=== PATIENT | female | born 1945 | race Caucasian/White ===

== ENCOUNTER → 2016-08-08 | Outpatient (CLI) | payer BC ==
[~2016-08-08] MED LIST: IBUP-1050 PO; LRT5 PO
--- NOTE | 2016-08-08 13:33 | MAMMOGRAPHY REPORT ---
BILATERAL DIGITAL DIAGNOSTIC MAMMOGRAM TOMOSYNTHESIS WITH CAD: 08/08/2016 CLINICAL HISTORY: History of benign ultrasound-guided core needle biopsy of the left breast January 2016, here for short interval follow-up of a left breast asymmetry. TECHNIQUE: Breast tomosynthesis in addition to standard 2D mammography was performed. Current study was also evaluated with a Computer Aided Detection (CAD) system. Bilateral CC and MLO 2-D and cece synthesis images were obtained. COMPARISON: Comparison is made to exams dated: 02/08/2016 ultrasound biopsy, 02/08/2016 mammogram, 02/04/2016 ultrasound, 02/04/2016 mammogram, 06/06/2015 ultrasound, and 06/06/2015 mammogram - [facility]. BREAST COMPOSITION: There are scattered areas of fibroglandular density in both breasts. FINDINGS: A biopsy marker clip is again noted in the left upper outer quadrant from prior benign ult rasound-guided biopsy. The previously described asymmetry in the left superior breast middle depth on the MLO view only is stable dating back to the April 2015 exam, and has the appearance of shanae l fibroglandular tissue on the tomosynthesis images. The remainder of both breasts are stable kenny red to prior exams, without suspicious masses, calcifications, or areas of architectural distortion noted. IMPRESSION: ACR BI-RADS CATEGORY 2: BENIGN The left superior breast asymmetry is stable dating back to the April 2015 exam, and is benign and compatible with normal fibroglandular tissue. There is no mammographic evidence of malignancy. A 1 year screening mammogram is recommended. The patient has been verbally notified of the results. Approximately 10% of breast cancers are not detected with mammography. A negative mammographic repor t should not delay biopsy if a clinically suggestive mass is present. Deb Hardy M.D. /:08/08/2016 10:23:16 Wood Stainer: Darlyn Covarrubias, [facility] letter sent: Normal 1/2 BI-RADS Code: ACR BI-RADS Category 2: Benign
== END | disposition home or self-care (01) ==
LOC: C.MAMM 09:41
PROVIDERS: ATTEND Family Medicine
DX: R92.8 Other abnormal and inconclusive findings on diagnostic imaging of breast (principal); N64.89 Other specified disorders of breast

== ENCOUNTER 2017-04-15 22:29 | Emergency (ER) | payer BC ==
[~2017-04-15] VITALS: Ht 154.9 cm; Wt 63.7 kg
[2017-04-15 22:31] VITALS: TEMP 36.4; Ht 154.9 cm; Wt 63.7 kg
[2017-04-15] MEDS ORDERED: ONDANSETRON 4MG OD TAB PO ONE (22:45)
--- NOTE | 2017-04-15 23:07 | DIAGNOSTIC IMAGING REPORT ---
RIGHT SHOULDER 2 VIEWS CLINICAL HISTORY: Right shoulder pain. FINDINGS: 2 views of the right shoulder are obtained. No prior studies are available for comparison at the time of dictation. The skeletal structures are osteopenic. No fracture is identified. There is anterior shoulder dislocation. Mild degenerative change is noted at the acromioclavicular joint. Overlying soft tissue edema is observed. The visualized right lung parenchyma appears clear. IMPRESSION: Findings are consistent with anterior right shoulder dislocation. No fracture is clearly seen. Electronically signed by: Jacky Salinas M.D. 04/15/2017 11:06 PM Dictated Date/Time: 04/15/2017 11:05 PM
[2017-04-15] MEDS ORDERED: FENTANYL CITRATE INJ 50 MCG/1 ML 2 ML VIAL IV ONE (23:30)
[2017-04-15] MEDS ORDERED: FENTANYL CITRATE INJ 50 MCG/1 ML 2 ML VIAL IV STA (23:56)
[2017-04-16] MEDS ORDERED: HYDROmorphone INJ 0.5 MG/0.5 ML SYR IV STA (00:18)
--- NOTE | 2017-04-16 00:26 | EMERGENCY ROOM VISIT NOTE ---
ED Visit Note First contact with patient: 22:39 The patient was seen and examined with Tereza Voss PA-C. I agree with the history, physical and findings. Please see the note for disposition and details. The patient has a dislocated shoulder on the right side. She was given fentanyl and Dilaudid for pain control. Procedural Sedation Indication shoulder dislocation. Total time: 15 minutes. Written consent was obtained after the risks and benefits were explained to the patient and family, including, but not limited to aspiration, allergic reaction , breathing difficulties, cardiac complications, vomiting, pain, event recall, bleeding, and/or infection. Pre-sedation examination and paperwork completed. The patient was on 100% oxygen via NRB prior to the procedure. Continous end tidal CO2 monitoring, pulse oximetry, and cardiac monitoring were utilized. Suction, airway equipment, medications, respiratory equipment, and appropriate personnel were prepared prior to the initiation of the procedure. A time out was taken. Sedation was achieved utilizing a total of 40 mg propofol in 2 doses of 30 mg and 10 mg. After I observed the patient had reached the appropriate level of sedation the main procedure was performed without complication. Sedation was discontinued and the monitoring continued. The patient recovered quickly from the effects of the medication without complication or adverse event.
--- NOTE | 2017-04-16 00:30 | EMERGENCY ROOM VISIT NOTE ---
History First contact with patient: 22:39 Chief Complaint: SHOULDER PAIN Stated Complaint: DISLOCATED R SHOULDER OR TORN ROTATOR CUFF History of Present Illness The patient is a 71 year old female who presents to the Emergency Room with complaints of right shoulder pain and difficulty moving the arm. The patient reports that she has been having issues with her shoulder for "a while." She states that she has increased shoulder pain at night. She states that this evening, she made dinner and was going about her normal activities and when she was washing her dishes, she suddenly had increased pain and became unable to lift her arm at the shoulder. She rates her overall discomfort a 10/10. She denies any history of shoulder surgery or previous dislocations. She denies any numbness. She denies any recent trauma to the shoulder. Review of Systems A complete 10 point review of systems was reviewed with the patient with pertinent positives and negatives as per history of present illness. All else were negative. Social History Smoking Status: Never Smoker Current/Historical Medications Scheduled Ibuprofen (Advil), 400-600 MG PO Q6HR PRN Physical Exam Vital Signs Date Time Temp Pulse Resp B/P (MAP) Pulse Ox O2 Delivery O2 Flow Rate FiO2 04/16/17 01:55 79 17 157/79 94 Room Air 04/16/17 01:52 79 20 153/79 100 Non-Rebreather 15.0 04/16/17 01:43 79 10 164/116 100 Non-Rebreather 15.0 04/16/17 01:37 61 16 200/80 100 Nasal Cannula 2.0 04/16/17 01:30 59 21 200/80 99 Nasal Cannula 2.0 04/16/17 01:22 63 25 203/86 98 Room Air 04/16/17 00:08 76 30 193/86 98 Room Air 04/15/17 23:36 79 04/15/17 22:31 36.4 64 18 202/74 99 Room Air Physical Exam VITALS: Vitals are noted on the nurse's note and reviewed by myself. Vital signs stable. GENERAL: This is a 71-year-old female, uncomfortable appearing, well-developed well-nourished. SKIN: Capillary reflex less than 2 seconds. HEENT: Normocephalic. PERRLA. Mucous membranes moist, airway patent. HEART: Regular rate and rhythm without murmurs gallops or rubs. LUNGS: Clear to auscultation bilaterally without wheezes, rales or rhonchi. MUSCULOSKELETAL: There is obvious deformity of the right shoulder with tenderness to palpation. Significantly decreased range of motion of the shoulder. Radial pulses 2+. NEURO: Patient was alert and oriented to person place and time. Normal sensation of the right upper extremity. Medical Decision & Procedures ER Provider Diagnostic Interpretation: RIGHT SHOULDER 2 VIEWS FINDINGS: 2 views of the right shoulder are obtained. No prior studies are available for comparison at the time of dictation. The skeletal structures are osteopenic. No fracture is identified. There is anterior shoulder dislocation. Mild degenerative change is noted at the acromioclavicular joint. Overlying soft tissue edema is observed. The visualized right lung parenchyma appears clear. IMPRESSION: Findings are consistent with anterior right shoulder dislocation. No fracture is clearly seen. RIGHT SHOULDER 2 VIEWS - POST REDUCTION Interval reduction of the right shoulder dislocation. Medications Administered Medications (Trade) Dose Ordered Sig/Ernestine Route Start Time Stop Time Status Last Admin Dose Admin Ondansetron HCl (Zofran Odt) 4 mg ONE ONCE PO 04/15/17 22:45 04/15/17 22:46 DC 04/15/17 23:14 4 MG Fentanyl Citrate (Fentanyl Inj) 25 mcg NOW ONCE IV 04/15/17 23:30 04/15/17 23:31 DC 04/15/17 23:40 25 MCG Fentanyl Citrate (Fentanyl Inj) 50 mcg NOW STAT IV 04/15/17 23:56 04/15/17 23:57 DC 04/16/17 00:05 50 MCG Hydromorphone HCl (Dilaudid Inj) 0.5 mg NOW STAT IV 04/16/17 00:18 04/16/17 00:19 DC 04/16/17 00:36 0.5 MG Procedure Consent was obtained to perform the procedure. Conscious sedation was performed by Dr. Rodriguez. Please see his dictation for these details. A sheet was wrapped around the patient's right arm and steady traction was applied while countertraction was applied by ED radiography technician. The shoulder was quickly and easily reduced. Medical Decision Differential diagnosis includes shoulder dislocation, humeral fracture, clavicle fracture, rotator cuff injury, among others. The patient was evaluated as above. X-ray of the right shoulder was obtained and reveals a dislocation of the right shoulder. Patient was given Zofran ODT. Initially, reduction was attempted by laying the patient prone and applying steady downward traction to the arm with scapular manipulation. This was unsuccessful. The patient's muscles were very tight. She was given 2 doses of fentanyl and a small dose of Dilaudid with some improvement of pain. Reduction was again attempted but unfortunately was again unsuccessful. Patient was then sedated with propofol and reduction was performed and successful. Please see procedure section and Dr. Rodriguez's procedural sedation note for more information. Postreduction x-rays were performed and showed anatomical alignment of the shoulder joint. Patient was placed in an arm sling and given information for orthopedic follow-up. She was monitored for greater than 1 hour following the sedation. The patient and family verbalized their understanding of my assessment and treatment plan and the patient was discharged home in good condition. The patient was independently evaluated by Dr. Rodriguez, ED attending physician, who agreed with my assessment and treatment plan. Medication Reconcilliation Current Medication List: was personally reviewed by me Blood Pressure Screening Patient's blood pressure: Elevated blood pressure Blood pressure disposition: Referred to PCP Impression Primary Impression: Dislocation of right shoulder joint Departure Information Dispostion Home / Self-Care Condition GOOD Referrals Chato Lewis M.D. (PCP) Angel Valencia MD Patient Instructions My [facility] Additional Instructions Call [facility] orthopedics, Dr. Valencia to schedule a follow-up appointment. Wear the sling until follow-up with orthopedics. You may remove the sling a few times a day to perform gentle range of motion exercises. Tylenol as needed for pain. Your blood pressure was elevated today. Follow-up with your primary care provider for recheck. Return to the emergency with worsening shoulder pain, numbness/weakness of the arm, recurrent dislocation or any other new/concerning symptoms. Problem Qualifiers Primary Impression: Dislocation of right shoulder joint Encounter type: initial encounter Qualified Codes: S43.004A - Unspecified dislocation of right shoulder joint, initial encounter
[2017-04-16] MEDS ORDERED: PROPOFOL IV EMULSION 10 MG/ML 20 ML VIAL IV STA (01:12)
--- NOTE | 2017-04-16 01:16 | EMERGENCY ROOM VISIT NOTE ---
Pre-Mod Sedation Assessment General Date of Moderate Sedation: Apr 16, 2017. Vital Signs: Vital Signs Past 12 Hours Date Time Temp Pulse Resp B/P (MAP) Pulse Ox O2 Delivery O2 Flow Rate FiO2 04/16/17 00:08 76 30 193/86 98 Room Air 04/15/17 23:36 79 04/15/17 22:31 36.4 64 18 202/74 99 Room Air Review Cardiovascular: regular rate, rhythm Abdomen: non tender Lungs: lungs clear Pre-Sedation Airway Assessment Oral Cavity: WNL Short Thick Neck: No Hx of Sleep Apnea: No Smoking Status: Never Smoker Mallampati Classification: Class I (Sft palate,uvula,fauces,pillar) ASA Classification: Class I Procedure Planning Contraindications-for Mod Sed: None Notes NPO since 1730 hrs. The planned sedation has been discussed with the patient and consent obtained. I have identified the patient, determined the appropriateness of sedation and have assessed the patient immediately prior to the procedure. All medicine(s) and interventions are by my order.
--- NOTE | 2017-04-16 01:18 | EMERGENCY ROOM VISIT NOTE ---
Post-Moderate Sedation Plan General Date of Moderate Sedation Apr 16, 2017. Vital Signs: Vital Signs Past 12 Hours Date Time Temp Pulse Resp B/P (MAP) Pulse Ox O2 Delivery O2 Flow Rate FiO2 04/16/17 00:08 76 30 193/86 98 Room Air 04/15/17 23:36 79 04/15/17 22:31 36.4 64 18 202/74 99 Room Air Review - Discharge Plan Post Moderate Sedation Plan: On clinical assessment, the patient appears to have tolerated the conscious sedation without complications. Patient is recovering as anticipated. Patient will continue to be monitored by nursing and may be discharged when conscious sedation discharge criteria are met.
[2017-04-16 01:30] VITALS: O2SAT 99
[2017-04-16 01:37] VITALS: BP 200/80; PULSE 61; O2SAT 100
[2017-04-16 01:43] VITALS: BP 164/116; PULSE 79; O2SAT 100
[2017-04-16 01:52] VITALS: BP 153/79; PULSE 79; O2SAT 100
[2017-04-16 01:55] VITALS: BP 157/79; PULSE 79; O2SAT 94
--- NOTE | 2017-04-16 06:59 | DIAGNOSTIC IMAGING REPORT ---
R SHOULDER MIN 2 VIEWS ROUTINE CLINICAL HISTORY: post reduction dislocation COMPARISON: 04/15/2017 DISCUSSION: Anatomic alignment status post closed reduction. No evidence for fracture. Mild superimposed degenerative change. There is no evidence for soft tissue swelling. IMPRESSION: Anatomic alignment post closed reduction. The above report was generated using voice recognition software. It may contain grammatical, syntax or spelling errors. Electronically signed by: Hiren Barry M.D. 04/16/2017 6:57 AM Dictated Date/Time: 04/16/2017 6:57 AM
== END 2017-04-16 02:55 | disposition home or self-care (01) ==
LOC: C.EDB 22:30
DX: S43.004A Unspecified dislocation of right shoulder joint, initial encounter (principal); X58.XXXA Exposure to other specified factors, initial encounter

== ENCOUNTER → 2017-08-11 | Outpatient (CLI) | payer BC ==
[~2017-08-11] MED LIST changes: -LRT5 PO
--- NOTE | 2017-08-12 15:29 | MAMMOGRAPHY REPORT ---
BILATERAL DIGITAL SCREENING MAMMOGRAM TOMOSYNTHESIS WITH CAD: 08/11/2017 CLINICAL HISTORY: Routine screening. Patient has no complaints. TECHNIQUE: Breast tomosynthesis in addition to standard 2D mammography was performed. Current study was also evaluated with a Computer Aided Detection (CAD) system. COMPARISON: Comparison is made to exams dated: 08/08/2016 mammogram, 02/04/2016 mammogram, 06/06/2015 mammogram, 05/18/2015 mammogram, 09/18/2004 mammogram, and 02/04/2016 ultrasound - [facility]. BREAST COMPOSITION: There are scattered areas of fibroglandular density in both breasts. FINDINGS: There is stable asymmetry in the superior left breast on the MLO view, and a stable ribbon- shaped biopsy marker clip in the left upper outer quadrant. There are mild vascular calcifications b ilaterally. No new suspicious mass, architectural distortion or cluster of microcalcifications is se en. IMPRESSION: ACR BI-RADS CATEGORY 1: NEGATIVE There is no mammographic evidence of malignancy. A 1 year screening mammogram is recommended. The pa tient will receive written notification of the results. Approximately 10% of breast cancers are not detected with mammography. A negative mammographic report should not delay biopsy if a clinically suggestive mass is present. Stefanie Card M.D. ay/:08/11/2017 16:23:14 Senior Product Engineer: Christina STODDARD)(M), [facility] letter sent: Normal 1/2 BI-RADS Code: ACR BI-RADS Category 1: Negative
== END | disposition home or self-care (01) ==
LOC: C.MAMM 10:41
PROVIDERS: ATTEND Family Medicine
DX: Z12.31 Encounter for screening mammogram for malignant neoplasm of breast (principal)